=== PATIENT | male | born 1945 | race Hispanic/Latino ===

== ENCOUNTER 2017-12-11 15:39 | Observation (INO) | payer OTHER ==
[2017-12-11] MEDS ORDERED: ASPIRIN 81 MG CHEWABLE TABLET ONE (16:28)
[2017-12-11] MEDS ORDERED: NA CHLORIDE 0.9% 1,000 ML ONE (16:29)
--- NOTE | 2017-12-11 16:29 | RAD REPORT ---
EXAM DESCRIPTION: RAD - Chest Single View - 12/11/2017 4:22 pm CLINICAL HISTORY: Chest pain. COMPARISON: 04/17/2013 FINDINGS: Portable technique limits examination quality. The lungs are mildly emphysematous but grossly clear. The heart is normal in size. No displaced fract ures. IMPRESSION: No acute intrathoracic process suspected.
[2017-12-11 16:38] LABS: Absolute Lymphocytes (CBC) 2.5 K/uL (0.7-4.9); Absolute Monocytes 0.7 K/uL (0.1-1.3); Basophils % 0.7 % (0-1.3); Eosinophils % 2.9 % (0-4.4); Hematocrit 37.3 % (39.6-49.0); MCH 29.5 pg (27.0-35.0); MCV 87.1 fL (80-100); MPV 8.1 fL (7.6-11.3); Monocytes % 9.7 % (3.3-12.3); RBC Red Blood Cell Count 4.28 M/uL (4.33-5.43)
[2017-12-11 16:49] LABS: Protime INR 0.95
[2017-12-11 17:18] LABS: CKMB Creatine Kinase MB 1.3 ng/ml (0.3-4.0); Potassium 3.9 mEq/L (3.6-5.0)
[2017-12-11 17:24] LABS: Albumin 3.7 g/dL (3.2-5.5); Bilirubin Direct 0.1 mg/dL (0-0.2); Bilirubin Total 0.5 mg/dL (0.3-1.2); Magnesium 1.9 mg/dL (1.8-2.5); Protein, Total 7.1 g/dL (6.0-8.3)
--- NOTE | 2017-12-11 18:13 | EDPHYS ---
Physician Documentation [facility] Name: Ulisses Agrawal Age: 72 yrs Sex: Male : 1945 Arrival Date: 12/11/2017 Time: 15:43 Bed 4 Private MD: None, None ED Physician Leif Gannon HPI: 12/11 16:20 This 72 yrs old Male presents to ER via Ambulatory with complaints of Chest cp Pressure. 16:21 The patient or guardian reports chest pain that is located primarily in the anterior cp chest wall, left. Onset: yesterday. The pain does not radiate. Associated signs and symptoms: Pertinent negatives: abdominal pain, cough, diaphoresis, dizziness, headache, lower extremity pain, lower extremity swelling, lightheadedness, near syncope, shortness of breath, syncope, vomiting. The chest pain is described as a pressure. Duration: The patient or guardian reports a single episode, that is still ongoing, but improving. Severity of pain: in the emergency department the pain is a / 10. 16:21 Pain started yesterday while helping son move heavy boxes. cp Historical: - Allergies: 15:49 No Known Allergies; aj - Home Meds: 15:49 Metformin Oral [Active]; aj - PMHx: 15:49 Myocardial infarction; Diabetes - NIDDM; aj - PSHx: 15:49 None; aj - Immunization history:: Adult Immunizations up to date. - Social history:: Smoking status: Patient uses tobacco products, smokes one-half pack cigarettes per day. - Ebola Screening: : Patient negative for fever greater than or equal to 101.5 degrees Fahrenheit, and additional compatible Ebola Virus Disease symptoms Patient denies exposure to infectious person Patient denies travel to an Ebola-affected area in the 21 days before illness onset No symptoms or risks identified at this time. ROS: 16:22 Eyes: Negative for injury, pain, redness, and discharge. cp 16:22 Constitutional: Negative for body aches, chills, fever, poor PO intake. 16:22 ENT: Negative for drainage from ear(s), ear pain, sore throat, difficulty swallowing, difficulty handling secretions. 16:22 Cardiovascular: Positive for chest pain, Negative for edema, orthopnea, palpitations. 16:22 Respiratory: Negative for cough, pleurisy, shortness of breath, wheezing. 16:22 Abdomen/GI: Negative for abdominal pain, nausea, vomiting, and diarrhea, black/tarry stool, rectal bleeding. 16:22 Back: Negative for pain at rest, pain with movement, radiated pain. 16:22 : Negative for urinary symptoms. 16:22 Skin: Negative for cellulitis, rash. 16:22 Neuro: Negative for altered mental status, dizziness, headache, loss of consciousness, syncope, near syncope, weakness. 16:22 All other systems are negative. Exam: 16:08 ECG was reviewed by the Attending Physician. cp 16:25 Constitutional: The patient appears in no acute distress, alert, awake, cp non-diaphoretic, non-toxic, well developed, well nourished. 16:25 Head/Face: Normocephalic, atraumatic. Eyes: Pupils equal round and reactive to light, cp extra-ocular motions intact. Lids and lashes normal. Conjunctiva and sclera are non-icteric and not injected. Cornea within normal limits. Periorbital areas with no swelling, redness, or edema. ENT: Nares patent. No nasal discharge, no septal abnormalities noted. Tympanic membranes are normal and external auditory canals are clear. Oropharynx with no redness, swelling, or masses, exudates, or evidence of obstruction, uvula midline. Mucous membranes moist. Neck: Trachea midline, no thyromegaly or masses palpated, and no cervical lymphadenopathy. Supple, full range of motion without nuchal rigidity, or vertebral point tenderness. No Meningismus. 16:25 Chest/axilla: Inspection: normal, Palpation: crepitus, is not appreciated, tenderness, that is mild, of the anterior aspect of left upper chest and mid-sternal area, Lymph nodes: lymphadenopathy is not appreciated. 16:25 Cardiovascular: Rate: normal, Rhythm: regular, Pulses: Pulses are 2+ in right radial artery and left radial artery. Heart sounds: murmur, not appreciated, Edema: is not appreciated, JVD: is not appreciated. 16:25 Respiratory: the patient does not display signs of respiratory distress, Respirations: normal, no use of accessory muscles, no retractions, no splinting, no tachypnea, labored breathing, is not present, Breath sounds: are clear throughout, no decreased breath sounds, no stridor, no wheezing. 16:25 Abdomen/GI: Inspection: abdomen appears normal, Bowel sounds: active, all quadrants, Palpation: abdomen is soft and non-tender, in all quadrants, rebound tenderness, is not appreciated, voluntary guarding, is not appreciated, involuntary guarding, is not appreciated. 16:25 Back: pain, is absent, ROM is normal. 16:25 Musculoskeletal/extremity: Exam is negative for bony tenderness, calf tenderness, decreased range of motion, edema, ROM: intact in all extremities, Sensation intact. 16:25 Skin: cellulitis, is not appreciated, no rash present. 16:25 Neuro: Orientation: to person, place \T\ time. Mentation: lucid, able to follow commands, Cerebellar function: is grossly normal, Motor: moves all fours, strength is normal, Sensation: no obvious gross deficits. Vital Signs: 15:49 BP 133 / 72; Pulse 89; Resp 17; Temp 98.7; Pulse Ox 100% on R/A; Weight 79.38 kg; aj Height 5 ft. 7 in. (170.18 cm); 16:30 BP 105 / 62 LA Supine; Pulse 75; Resp 16; Pulse Ox 98% on R/A; dh3 16:30 BP 131 / 62 RA Supine; Pulse 73; Resp 16; Pulse Ox 98% on R/A; dh3 16:33 BP 106 / 64 LA Sitting; Pulse 82; Resp 23; Pulse Ox 100% on R/A; dh3 16:33 BP 127 / 63 RA Sitting; Pulse 82; Resp 21; Pulse Ox 100% on R/A; dh3 16:36 BP 110 / 63 LA Standing; Pulse 79; Resp 23; Pulse Ox 99% on R/A; dh3 16:36 BP 128 / 66 RA Standing; Pulse 77; Resp 21; Pulse Ox 100% ; dh3 17:38 BP 129 / 65; Pulse 88; Resp 18; Pulse Ox 100% on R/A; hj 18:06 BP 125 / 71; Pulse 66; Resp 18; Pulse Ox 100% on R/A; dh3 19:15 BP 108 / 55; Pulse 72; Resp 16; Pulse Ox 99% on R/A; Pain 0/10; ao 15:49 Body Mass Index 27.41 (79.38 kg, 170.18 cm) aj MDM: 16:12 Patient medically screened. cp 17:00 Differential diagnosis: abnormal EKG, acute myocardial infarction, acute pericarditis, cp gastroesophageal reflux disease (GERD), myocarditis, pancreatitis, pleurisy, pneumonia, pneumothorax, pulmonary embolus, stable angina, thoracic aortic disection, unstable angina. 18:10 The patient was given aspirin in the Emergency Department. Data reviewed: vital signs, cp nurses notes, lab test result(s), EKG, radiologic studies, plain films. Physician consultation: Erwin Keenan MD was called at 18:11, was contacted at 18:11, regarding admission, to the telemetry unit. patient's condition. 12/11 16:13 Order name: Basic Metabolic Panel; Complete Time: 17:47 cp 12/11 17:48 Interpretation: Normal except: GLUC 170; GFR 71. cp 12/11 16:13 Order name: BNP; Complete Time: 17:04 cp 12/11 16:13 Order name: CBC with Diff; Complete Time: 17:04 cp 12/11 17:04 Interpretation: Normal except: RBC 4.28; HGB 12.6; HCT 37.3. cp 12/11 16:13 Order name: Ckmb; Complete Time: 17:47 cp 12/11 16:13 Order name: CPK; Complete Time: 17:47 cp 12/11 16:13 Order name: LFT's; Complete Time: 17:47 cp 12/11 17:48 Interpretation: Normal except: SGPT 8. cp 12/11 16:13 Order name: Magnesium; Complete Time: 17:47 cp 12/11 16:13 Order name: PT-INR; Complete Time: 17:47 cp 12/11 16:13 Order name: Ptt, Activated; Complete Time: 17:47 cp 12/11 16:13 Order name: Troponin (emerg Dept Use Only); Complete Time: 17:04 cp 12/11 17:04 Interpretation: TROPED < 0.03; Reviewed. cp 12/11 18:21 Order name: Basic Metabolic Panel EDMS 12/11 18:21 Order name: Basic Metabolic Panel EDMS 12/11 18:21 Order name: CBC with Automated Diff EDMS 12/11 18:21 Order name: CBC with Automated Diff EDMS 12/11 16:13 Order name: XRAY Chest (1 view); Complete Time: 17:04 cp 12/11 16:13 Order name: EKG; Complete Time: 16:14 cp 12/11 16:13 Order name: Cardiac monitoring; Complete Time: 16:23 cp 12/11 18:21 Order name: CONS Physician Consult EDPR 12/11 18:21 Order name: Heart Healthy EDPR 12/11 18:21 Order name: Echo with Doppler EDPR 12/11 18:21 Order name: Lipid Profile EDPR 12/11 18:21 Order name: Lipid Profile [facility] 12/11 18:21 Order name: Troponin I EDPR 12/11 18:21 Order name: Troponin I [facility] 12/11 18:21 Order name: Troponin I [facility] 12/11 16:13 Order name: EKG - Nurse/Tech; Complete Time: 16:23 cp 12/11 16:13 Order name: IV Saline Lock; Complete Time: 16:23 cp 12/11 16:13 Order name: Labs collected and sent; Complete Time: 16:24 cp 12/11 16:13 Order name: O2 Per Protocol; Complete Time: 16:24 cp 12/11 16:13 Order name: O2 Sat Monitoring; Complete Time: 16:24 cp 12/11 16:15 Order name: Blood Pressure Recheck: bilateral upper extremities; Complete Time: 16:46 cp 12/11 16:15 Order name: Orthostatics; Complete Time: 16:46 cp EC:08 Rate is 88 beats/min. Rhythm is regular. TX interval is normal. QRS interval is normal. cp QT interval is normal. T waves are Flattened in lead aVL. No ST changes noted. Interpreted by me. Reviewed by me. Administered Medications: 16:15 Drug: Aspirin Chewable Tablet 324 mg Route: PO; hj 16:54 Follow up: Response: No adverse reaction hj 16:15 Drug: NS 0.9% 1000 ml Route: IV; Rate: 75 ml/hr; Site: right antecubital; hj 16:54 Follow up: IV Status: Infusion continued hj 17:05 Drug: NS 0.9% 250 ml Route: IV; Rate: bolus; Site: right antecubital; hj 19:15 Drug: Metoprolol 25 mg Route: PO; ao 19:15 Drug: Lovenox 40 mg Route: Sub-Q; Site: abdomen; ao Disposition: 12/11/17 18:13 Hospitalization ordered by Erwin Keenan for Observation. Preliminary diagnosis is Angina pectoris, unspecified. - Bed requested for Telemetry/MedSurg (observation). - Status is Observation. ao - Condition is Stable. - Problem is new. - Symptoms are resolved. UTI on Admission? No Addendum: 12/13/2017 07:01 Co-signature as Attending Physician, Leif Gannon MD I agree with the assessment and k dr plan of care. Signatures: Dispatcher [employer] EDMS Penny Ware RN RN kl Myers, Amanda, RN RN aj Rittger, Kevin, MD MD kdr Joaquin, Henry RN RN Arnie Youssef PA PA cp Ortiz, Alex RN RN ao Corrections: (The following items were deleted from the chart) 12/11 19:20 18:13 Hospitalization Ordered by Erwin Keenan MD for Observation. Preliminary diagnosis kl is Angina pectoris, unspecified. Bed requested for Telemetry/MedSurg (observation). Status is Observation. Condition is Stable. Problem is new. Symptoms are resolved. UTI on Admission? No. cp 20:27 19:20 12/11/2017 18:13 Hospitalization Ordered by Erwin Keenan MD for Observation. ao Preliminary diagnosis is Angina pectoris, unspecified. Bed requested for Telemetry/MedSurg (observation). Status is Observation. Condition is Stable. Problem is new. Symptoms are resolved. UTI on Admission? No. kl
--- NOTE | 2017-12-11 18:13 | ER ---
Nurse's Notes [facility] Name: Ulisses Agrawal Age: 72 yrs Sex: Male : 1945 Arrival Date: 12/11/2017 Time: 15:43 Bed 4 Private MD: None, None Diagnosis: Angina pectoris, unspecified Presentation: 12/11 15:48 Presenting complaint: Patient states: Chest pressure that started yesterday with aj lightheadedness. Patient reports that he forgot where he was. Transition of care: patient was not received from another setting of care. Onset of symptoms was December 10, 2017. Risk Assessment: Do you want to hurt yourself or someone else? Patient reports no desire to harm self or others. Care prior to arrival: None. 15:48 Method Of Arrival: Ambulatory 15:48 Acuity: RAMIREZ 3 aj 16:02 Initial Sepsis Screen: Does the patient meet any 2 criteria? No. Patient's initial hj sepsis screen is negative. Does the patient have a suspected source of infection? No. Patient's initial sepsis screen is negative. Triage Assessment: 15:49 General: Appears in no apparent distress. comfortable, Behavior is calm, cooperative, aj appropriate for age. Pain: Denies pain. Neuro: Level of Consciousness is awake, alert, obeys commands, Oriented to person, place, time, situation, Appropriate for age. Cardiovascular: Reports chest pain, lightheadedness, shortness of breath. Respiratory: Reports shortness of breath Airway is patent Respiratory effort is even, unlabored, Respiratory pattern is regular, symmetrical. Derm: Skin is intact, is healthy with good turgor, Skin is pink, warm \T\ dry. normal. Historical: - Allergies: 15:49 No Known Allergies; aj - Home Meds: 15:49 Metformin Oral [Active]; aj - PMHx: 15:49 Myocardial infarction; Diabetes - NIDDM; aj - PSHx: 15:49 None; aj - Immunization history:: Adult Immunizations up to date. - Social history:: Smoking status: Patient uses tobacco products, smokes one-half pack cigarettes per day. - Ebola Screening: : Patient negative for fever greater than or equal to 101.5 degrees Fahrenheit, and additional compatible Ebola Virus Disease symptoms Patient denies exposure to infectious person Patient denies travel to an Ebola-affected area in the 21 days before illness onset No symptoms or risks identified at this time. Screenin:02 Abuse screen: Denies threats or abuse. Denies injuries from another. Nutritional hj screening: No deficits noted. Tuberculosis screening: No symptoms or risk factors identified. Fall Risk None identified. Assessment: 16:02 General: Appears in no apparent distress. uncomfortable, Behavior is calm, cooperative, hj appropriate for age. Pain: Complains of pain in chest. Neuro: Level of Consciousness is awake, alert, obeys commands, Oriented to person, place, time, situation, Appropriate for age. Cardiovascular: Capillary refill < 3 seconds Patient's skin is warm and dry. Respiratory: Airway is patent Respiratory effort is even, unlabored, Respiratory pattern is regular, symmetrical. GI: No signs and/or symptoms were reported involving the gastrointestinal system. : No signs and/or symptoms were reported regarding the genitourinary system. EENT: No signs and/or symptoms were reported regarding the EENT system. Derm: No signs and/or symptoms reported regarding the dermatologic system. Musculoskeletal: No signs and/or symptoms reported regarding the musculoskeletal system. 17:37 Reassessment: Patient and/or family updated on plan of care and expected duration. Pain hj level reassessed. Patient is alert, oriented x 3, equal unlabored respirations, skin warm/dry/pink. Patient states feeling better. Patient states symptoms have improved. 18:30 Reassessment: Patient and/or family updated on plan of care and expected duration. Pain hj level reassessed. Patient is alert, oriented x 3, equal unlabored respirations, skin warm/dry/pink. for admit;. 19:15 General: Appears in no apparent distress. comfortable, Behavior is calm, cooperative, ao appropriate for age. Pain: Denies pain. Complains of pain in Report chest pain that has subside. No CO of pain at this time. Neuro: Level of Consciousness is awake, alert, obeys commands, Oriented to person, place, time, situation, Appropriate for age Moves all extremities. Speech is normal, Facial symmetry appears normal. Cardiovascular: Capillary refill < 3 seconds Patient's skin is warm and dry. Respiratory: Airway is patent Respiratory effort is even, unlabored, Respiratory pattern is regular, symmetrical. GI: No signs and/or symptoms were reported involving the gastrointestinal system. : No signs and/or symptoms were reported regarding the genitourinary system. EENT: No signs and/or symptoms were reported regarding the EENT system. Derm: Skin is intact, Skin is normal, brown, Skin temperature is warm. Musculoskeletal: No signs and/or symptoms reported regarding the musculoskeletal system. 20:02 Reassessment: Report called to CODEY Barrera. Patient to be taking to his room. ao Vital Signs: 15:49 BP 133 / 72; Pulse 89; Resp 17; Temp 98.7; Pulse Ox 100% on R/A; Weight 79.38 kg; aj Height 5 ft. 7 in. (170.18 cm); 16:30 BP 105 / 62 LA Supine; Pulse 75; Resp 16; Pulse Ox 98% on R/A; dh3 16:30 BP 131 / 62 RA Supine; Pulse 73; Resp 16; Pulse Ox 98% on R/A; dh3 16:33 BP 106 / 64 LA Sitting; Pulse 82; Resp 23; Pulse Ox 100% on R/A; dh3 16:33 BP 127 / 63 RA Sitting; Pulse 82; Resp 21; Pulse Ox 100% on R/A; dh3 16:36 BP 110 / 63 LA Standing; Pulse 79; Resp 23; Pulse Ox 99% on R/A; dh3 16:36 BP 128 / 66 RA Standing; Pulse 77; Resp 21; Pulse Ox 100% ; dh3 17:38 BP 129 / 65; Pulse 88; Resp 18; Pulse Ox 100% on R/A; hj 18:06 BP 125 / 71; Pulse 66; Resp 18; Pulse Ox 100% on R/A; dh3 19:15 BP 108 / 55; Pulse 72; Resp 16; Pulse Ox 99% on R/A; Pain 0/10; ao 15:49 Body Mass Index 27.41 (79.38 kg, 170.18 cm) aj ED Course: 15:43 Patient arrived in ED. mr 15:43 None, None is Private Physician. mr 15:49 Triage completed. aj 15:49 Arm band placed on left wrist. Patient placed in an exam room. aj 16:01 Oz Dickens RN is Primary Nurse. hj 16:02 Patient has correct armband on for positive identification. Placed in gown. Bed in low hj position. Call light in reach. Side rails up X 1. 16:06 EKG done, by audiovisual technician. reviewed by Leif Gannon MD. sm3 16:07 Arnie Fuentes PA is PHCP. cp 16:07 Leif Gannon MD is Attending Physician. cp 16:08 Inserted saline lock: 22 gauge in right antecubital area, using aseptic technique. Blood collected. 16:20 XRAY Chest (1 view) In Process Unspecified. EDMS 18:11 Erwin Keenan MD is Hospitalizing Provider. cp 20:03 No provider procedures requiring assistance completed. Patient admitted, IV remains in ao place. Administered Medications: 16:15 Drug: Aspirin Chewable Tablet 324 mg Route: PO; hj 16:54 Follow up: Response: No adverse reaction hj 16:15 Drug: NS 0.9% 1000 ml Route: IV; Rate: 75 ml/hr; Site: right antecubital; hj 16:54 Follow up: IV Status: Infusion continued hj 17:05 Drug: NS 0.9% 250 ml Route: IV; Rate: bolus; Site: right antecubital; hj 19:15 Drug: Metoprolol 25 mg Route: PO; ao 19:15 Drug: Lovenox 40 mg Route: Sub-Q; Site: abdomen; ao Outcome: 18:13 Decision to Hospitalize by Provider. cp 20:03 Admitted to Tele accompanied by tech, room 424. ao 20:03 Condition: stable 20:03 Instructed on the need for admit. 20:27 Patient left the ED. ao Signatures: Dispatcher [employer] EDIL eBa Amaro RN RN aj Rivera, Maria mr Joaquin, Henry, RN RN hj Page, Corey, PA PA Royal Schwarz RN RN ao Herrera, Deanna 3 Priya Felder 3
[2017-12-11] MEDS ORDERED: ACETAMINOPHEN 500 MG TAB PO PRN (18:17)
[2017-12-11] MEDS ORDERED: MORPHINE 4 MG/ML SYR IV PRN (18:17)
[2017-12-11] MEDS ORDERED: D50W 25 GM/50 ML SYRINGE IV PRN (18:24)
[2017-12-11] MEDS ORDERED: GLUCAGON 1 MG/VIAL IM PRN (18:24)
[2017-12-11] MEDS ORDERED: NITROGLYCERIN 0.4 MG/TAB SL PRN (18:27)
[2017-12-11] MEDS ORDERED: METOPROLOL TAR 25 MG TAB ONE (19:12)
[2017-12-11] MEDS ORDERED: ENOXAPARIN 40 MG/0.4 ML SQ ONE (19:12)
[2017-12-11] MEDS: ENOXAPARIN 40 MG/0.4 ML SQ SCH (20:00)
[2017-12-11 20:36] VITALS: BMI 24.5
[2017-12-11] MEDS: INSULIN -REGULAR HUMAN 50 UNIT/0.5 ML ML SQ SCH (21:00)
[2017-12-11] MEDS: METOPROLOL TAR 25 MG TAB PO SCH (21:00)
[2017-12-11] MEDS ORDERED: ATORVASTATIN 40 MG TAB PO SCH (21:00)
[2017-12-11] MEDS: NA CHLORIDE 0.9% 1,000 ML IV SCH (22:00)
--- NOTE | 2017-12-11 22:18 | P.HP ---
Certification for Inpatient Patient admitted to: Observation With expected LOS: <2 Midnights Practitioner: I am a practitioner with admitting privileges, knowledge of patient current condition, hospital course, and medical plan of care. 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 This morning he felt chest discomfort. He also states that he feels dehydrated since he has been working under the sun and did not drink enough fluids. He describe the chest pain as tightness sensation, no radiated. He denied nausea, vomiting, SOB or diaphoresis associated with the pain. Trop I negative. EKG shows no ST-T abnormalities. Lab work remarkable for mild hyperglycemia, otherwise unremarkable. Allergies No Known Allergies Allergy (Unverified 12/11/17 19:03) - Past Medical/Surgical History -: DM II -: HI Past Surgical History: Reviewed- Non-Contributory - Family History Family History: Reviewed- Non-Contributory - Social History Smoking Status: Current every day smoker Counseled patient to stop smoking for: less than 10 minutes Smoking therapy provided: Yes Alcohol use: Yes CD- Drugs: No Place of Residence: Home Review of Systems 10-point ROS is otherwise unremarkable Physical Examination - Vital Signs Temperature: 97.5 F Blood Pressure: 169/74 Pulse: 62 Respirations: 17 Pulse Ox (%): 100 - Physical Exam General: Alert, In no apparent distress HEENT: Atraumatic, PERRLA, Mucous membr. moist/pink, EOMI, Sclerae nonicteric Neck: Supple, 2+ carotid pulse no bruit, No LAD, Without JVD or thyroid abnormality Respiratory: Clear to auscultation bilaterally, Normal air movement Cardiovascular: Regular rate/rhythm, Normal S1 S2 Gastrointestinal: Normal bowel sounds, No tenderness Musculoskeletal: No tenderness Integumentary: No rashes Neurological: Normal speech, Normal strength at 5/5 x4 extr, Normal tone, Normal affect Lymphatics: No axilla or inguinal lymphadenopathy - Studies Laboratory Data (last 24 hrs) 12/11/17 16:15: PT 11.2, INR 0.95, APTT 27.3 12/11/17 16:15: WBC 7.5, Hgb 12.6 L, Hct 37.3 L, Plt Count 211 12/11/17 16:15: B-Natriuretic Peptide 26 12/11/17 16:15: Sodium 136, Potassium 3.9, BUN 17, Creatinine 1.03, Glucose 170 H, Magnesium 1.9, Total Bilirubin 0.5, AST 14, ALT 8 L, Alkaline Phosphatase 81 Assessment and Plan - Problems (Diagnosis) (1) Chest pain Current Visit: Yes Status: Acute Qualifiers: Chest pain type: unspecified Qualified Code(s): R07.9 - Chest pain, unspecified (2) Diabetes mellitus Current Visit: Yes Status: Acute Qualifiers: Diabetes mellitus type: type 2 Diabetes mellitus terminal superintendent insulin use: without terminal superintendent use Diabetes mellitus complication status: with unspecified complications Qualified Code(s): E11.8 - Type 2 diabetes mellitus with unspecified complications - Plan The patient will be admitted to the hospital due to chest pain in order to R/O ACS. Will order serial Trop I, EKG, ECHO and cardiology consult. - Advance Directives Does patient have a Living Will: No Does patient have a Durable POA for Healthcare: No - Code Status/Comfort Care Code Status Assessed: Yes Code Status: Full Code
--- NOTE | 2017-12-11 23:01 | EKG ---
Test Date: 2017-12-11 Test Time: 16:00:37 Launch Leader: LUIS MEASUREMENT RESULTS: Intervals: Rate: 88 MD: 144 QRSD: 90 QT: 376 QTc: 454 [place]: P: 43 MD: 144 QRS: -38 T: 60 INTERPRETIVE STATEMENTS: Normal sinus rhythm Left axis deviation Abnormal ECG Compared to ECG 05/11/2013 14:29:38 No significant changes Electronically Signed On 12-11-17 23:00:04 CDT by Robin Avendaño
[2017-12-12] MEDS: NA CHLORIDE 0.9% 1,000 ML IV SCH (05:44)
[2017-12-12 06:28] LABS: Absolute Lymphocytes (CBC) 2.1 K/uL (0.7-4.9); Absolute Monocytes 0.5 K/uL (0.1-1.3); Absolute Neutrophil 3.5 K/uL (1.8-8.0); Basophils % 0.6 % (0-1.3); Eosinophils % 3.5 % (0-4.4); Hematocrit 32.8 % (39.6-49.0); Lymphocytes % 32.6 % (15.3-44.8); MCV 86.2 fL (80-100); MPV 8.1 fL (7.6-11.3); Monocytes % 8.1 % (3.3-12.3); RBC Red Blood Cell Count 3.81 M/uL (4.33-5.43)
[2017-12-12 07:15] LABS: BUN Blood Urea Nitrogen 16 mg/dL (6-20); Bicarbonate 26 mEq/L (21-31); Glucose Level 154 mg/dL (65-120); HDL Cholesterol 39 mg/dL (27-67); LDL Cholesterol, Calculated 76 (<130); Potassium 3.9 mEq/L (3.6-5.0); Sodium Level 137 mEq/L (135-145)
[2017-12-12] MEDS: INSULIN -REGULAR HUMAN 50 UNIT/0.5 ML ML SQ SCH (07:30)
[2017-12-12] MEDS ORDERED: REGADENOSON 0.4 MG/5 ML SYR IV ONE (07:44)
[2017-12-12 08:44] VITALS: BP 116/59; TEMP 97.7
[2017-12-12] MEDS: METOPROLOL TAR 25 MG TAB PO SCH (09:00)
[2017-12-12] MEDS: ENOXAPARIN 40 MG/0.4 ML SQ SCH (09:00)
[2017-12-12] MEDS ORDERED: ASPIRIN EC 81 MG TAB PO SCH (09:00)
[2017-12-12] MEDS ORDERED: LISINOPRIL 10 MG TAB PO SCH (09:00)
[2017-12-12 09:27] VITALS: O2SAT 96
--- NOTE | 2017-12-12 09:41 | P.DS ---
Admission Date: 12/11/17 Discharge Date: 12/12/17 Disposition: ROUTINE DISCHARGE Discharge Condition: GOOD Reason for Admission: chest pain - Problems (1) Chest pain Current Visit: Yes Status: Acute Qualifiers: Chest pain type: unspecified Qualified Code(s): R07.9 - Chest pain, unspecified (2) Diabetes mellitus Current Visit: Yes Status: Acute Qualifiers: Diabetes mellitus type: type 2 Diabetes mellitus tank terminal gauger insulin use: without tank terminal gauger use Diabetes mellitus complication status: with unspecified complications Qualified Code(s): E11.8 - Type 2 diabetes mellitus with unspecified complications Brief History of Present Illness: Patient was working in the yard. Lifted a timber killer into a truck the next morning he felt dizzy with some pain and soreness in his chest. Came to the ER. Was found to have a normal EKG and troponins. The patient was placed in observation Hospital Course: Seen by Dr Bailey. He had 3 negative troponins and a normal ekg. Will discharge him home for an outpatient work up. Vital Signs/Physical Exam: Temp Pulse Resp BP Pulse Ox 97.7 F 54 18 116/59 L 97 12/12/17 08:00 12/12/17 08:00 12/12/17 08:00 12/12/17 08:00 12/12/17 08:00 General: Alert, In no apparent distress HEENT: Atraumatic, PERRLA, EOMI Neck: Supple, JVD not distended Respiratory: Clear to auscultation bilaterally, Normal air movement Cardiovascular: Regular rate/rhythm, Normal S1 S2 Gastrointestinal: Normal bowel sounds, No tenderness Musculoskeletal: No tenderness Integumentary: No rashes Neurological: Normal speech, Normal tone, Normal affect Lymphatics: No axilla or inguinal lymphadenopathy Laboratory Data at Discharge: WBC 6.3 K/uL (4.3-10.9) D 12/12/17 05:45 Hgb 11.4 g/dL (13.6-17.9) L 12/12/17 05:45 Hct 32.8 % (39.6-49.0) L 12/12/17 05:45 Plt Count 197 K/uL (152-406) 12/12/17 05:45 PT 11.2 SECONDS (9.5-12.5) 12/11/17 16:15 INR 0.95 12/11/17 16:15 APTT 27.3 SECONDS (24.3-36.9) 12/11/17 16:15 Sodium 137 mEq/L (135-145) 12/12/17 05:45 Potassium 3.9 mEq/L (3.6-5.0) 12/12/17 05:45 BUN 16 mg/dL (6-20) 12/12/17 05:45 Creatinine 0.77 mg/dL (0.61-1.24) 12/12/17 05:45 Glucose 154 mg/dL (65-120) H 12/12/17 05:45 Magnesium 1.9 mg/dL (1.8-2.5) 12/11/17 16:15 Total Bilirubin 0.5 mg/dL (0.3-1.2) 12/11/17 16:15 AST 14 IU/L (10-42) 12/11/17 16:15 ALT 8 IU/L (10-60) L 12/11/17 16:15 Alkaline Phosphatase 81 IU/L (42-121) 12/11/17 16:15 Troponin I < 0.03 ng/mL (<0.03) 12/12/17 05:45 B-Natriuretic Peptide 26 pg/ml (<=100) 12/11/17 16:15 Triglycerides 104 mg/dL (35-160) 12/12/17 05:45 Cholesterol 136 mg/dL (<200) 12/12/17 05:45 HDL Cholesterol 39 mg/dL (27-67) 12/12/17 05:45 Cholesterol/HDL Ratio 3.49 12/12/17 05:45 Home Medications: Metformin HCl 500 mg PO DAILY 12/11/17 Diet: ADA Activity: Ad xiomara Followup: Rigoberto Bailey MD [ACTIVE - CAN ADMIT] - 1-2 Weeks Allison Butts NP [Primary Care Provider] - 1-2 Weeks Time spent managing pt's care (in minutes): 30
--- NOTE | 2017-12-12 13:40 | CON ---
Date of Consultation: 12/12/[address] Keenan on 12/11/2017. The patient was seen on 12/12/2017. Reason For Consultation: Chest pain. History Of Present Illness: Mr. Agrawal is a 72-year-old male, who apparently had hist ory of coronary artery disease when he was in his 20s. No interventions or bypass. Has a history of diabetes. He only takes metformin. He came into the emergency room where he stayed with wandaatio n. He was very upset when I asked that if he has any chest pain. He had some ultrasound and stress test ordered and he refused any workup. He wanted to go home. He stated that he feels well. He is hydrated. He said that he normally goes to [place] when he is dehydrated, gets IV fluid and goes ho pr, and he does not want to be in the hospital. Allergies: NONE. Medications: Metformin. Review of Systems: Negative. Social History: Negative. Family History: Noncontributory. Physical Examination: Reportedly within normal limit. Diagnostic Data: Within normal limits. Impression And Plan: 1.Dehydration, possible orthostasis, hydrated. 2.History of coronary artery disease that is very vague. 3.Diabetes, well controlled. Refuses workup. He can go home. I will sign off his case. NAHOMY/ANNIE Voice ID: [id number] Report ID: [id number]
== END 2017-12-12 11:01 | disposition home or self-care (01) ==
LOC: ER 15:39 → ERHOLD 18:46 → 4TH 19:23
PROVIDERS: ADMIT Family Medicine; ATTEND Internal Medicine
DX: R07.9 Chest pain, unspecified (principal); E11.9 Type 2 diabetes mellitus without complications; F17.210 Nicotine dependence, cigarettes, uncomplicated; I25.2 Old myocardial infarction
CPT/HCPCS: 36415; 71045; 80048 ×2; 80061; 80076; 82550; 82553; 82962 ×2; 83735; 83880; 84484 ×3; 85025 ×2; 85610; 85730; 93005; 94760 ×2; 96361; 96372; 96374; 99285; J1650; J7030 ×2; G0378; J2785

== ENCOUNTER 2019-06-04 15:57 | Emergency (ER) | payer OTHER ==
[2019-06-04 17:21] LABS: Absolute Lymphocytes (CBC) 2.1 K/uL (0.7-4.9); Basophils % 0.8 % (0-1.3); Hematocrit 38.1 % (39.6-49.0); Lymphocytes % 32.9 % (15.3-44.8); MPV 8.4 fL (7.6-11.3); RBC Red Blood Cell Count 4.45 M/uL (4.33-5.43)
[2019-06-04] MEDS ORDERED: NA CHLORIDE 0.9% 500 ML ONE (17:30)
--- NOTE | 2019-06-04 17:38 | RAD REPORT ---
EXAM DESCRIPTION: CT - Head Brain Wo Cont - 06/04/2019 5:16 pm CLINICAL HISTORY: Dizziness COMPARISON: None. TECHNIQUE: Computed axial tomography of the head was obtained. IV contrast was not requested. All CT scans are performed using dose optimization technique as appropriate and may include automated exposure control or mA/KV adjustment according to patient size. FINDINGS: An intracranial bleed is not seen . The ventricles are normal in caliber. No extra-axial fluid collection is noted. Fluid within the sinuses/ mastoids is not seen. IMPRESSION: No acute intracranial abnormality is seen. If patient's symptoms persist MRI of the bra in would be recommended.
[2019-06-04 17:39] LABS: BUN Blood Urea Nitrogen 19 mg/dL (7-18); Bicarbonate 29 mmol/L (21-32); Glucose Level 221 mg/dL (74-106); Potassium 4.2 mmol/L (3.5-5.1); Sodium Level 136 mmol/L (136-145); Troponin (Emerg Dept Use Only) < 0.02 ng/mL (0.0-0.045)
--- NOTE | 2019-06-04 18:59 | ER ---
Nurse's Notes [facility] Name: Ulisses Agrawal Age: 73 yrs Sex: Male : 1945 Arrival Date: 06/04/2019 Time: 15:59 Bed 28 Private MD: Diagnosis: Dehydration;Dizziness and giddiness Presentation: 06/04 16:12 Presenting complaint: Patient states: I was out fishing about an hour ago and stood up jl7 and felt dizzy and my vision was a little blurry, symptoms have resolved, wasn't sure if my sugar was low or what, reports mild BRYAN, denies nausea. Transition of care: patient was not received from another setting of care. Onset of symptoms was June 04, 2019 at 15:00. Risk Assessment: Do you want to hurt yourself or someone else? Patient reports no desire to harm self or others. Initial Sepsis Screen: Does the patient meet any 2 criteria? No. Patient's initial sepsis screen is negative. Does the patient have a suspected source of infection? No. Patient's initial sepsis screen is negative. Care prior to arrival: None. 16:12 Method Of Arrival: Ambulatory [facility] 16:12 Acuity: RAMIREZ 3 jl7 Historical: - Allergies: 16:17 No Known Allergies; jl7 - Home Meds: 16:17 Metformin Oral [Active]; "2 other pills for high blood pressure, I think." [Active]; jl7 - PMHx: 16:17 Diabetes - NIDDM; Myocardial infarction; Hypertension; jl7 - Immunization history:: Adult Immunizations not up to date. - Social history:: Smoking status: Patient uses tobacco products, smokes one-half pack cigarettes per day. - Ebola Screening: : No symptoms or risks identified at this time. - Family history:: not pertinent. - Hospitalizations: : No recent hospitalization is reported. Screenin:27 Abuse screen: Denies threats or abuse. Denies injuries from another. Nutritional aj1 screening: No deficits noted. Tuberculosis screening: No symptoms or risk factors identified. Fall Risk None identified. Assessment: 16:27 General: Appears in no apparent distress. comfortable, Behavior is calm, cooperative, aj1 appropriate for age. Pain: Denies pain. Neuro: Level of Consciousness is awake, alert, obeys commands, Oriented to person, place, time, situation, Shot Core Drill Operator Helper are equal bilaterally Moves all extremities. Full function Gait is steady, Speech is normal, Facial symmetry appears normal, Reports blurred vision dizziness, headache Denies syncope weakness. Cardiovascular: Denies chest pain, nausea, palpitations, shortness of breath, Heart tones S1 S2 S4 Patient's skin is warm and dry. Rhythm is sinus rhythm. Respiratory: Airway is patent Respiratory effort is even, unlabored, Respiratory pattern is regular, symmetrical, Breath sounds are clear bilaterally. GI: No signs and/or symptoms were reported involving the gastrointestinal system. : No signs and/or symptoms were reported regarding the genitourinary system. EENT: No signs and/or symptoms were reported regarding the EENT system. Derm: No signs and/or symptoms reported regarding the dermatologic system. Skin is pink, warm \\T\\ dry. normal. Musculoskeletal: No signs and/or symptoms reported regarding the musculoskeletal system. Circulation, motion, and sensation intact. 17:30 Reassessment: Patient appears in no apparent distress at this time. No changes from aj1 previously documented assessment. Patient and/or family updated on plan of care and expected duration. Pain level reassessed. Patient is alert, oriented x 3, equal unlabored respirations, skin warm/dry/pink. 18:30 Reassessment: Patient appears in no apparent distress at this time. No changes from aj1 previously documented assessment. Patient and/or family updated on plan of care and expected duration. Pain level reassessed. Patient is alert, oriented x 3, equal unlabored respirations, skin warm/dry/pink. 19:28 Reassessment: Patient appears in no apparent distress at this time. No changes from aj1 previously documented assessment. Patient and/or family updated on plan of care and expected duration. Pain level reassessed. Patient is alert, oriented x 3, equal unlabored respirations, skin warm/dry/pink. Vital Signs: 16:17 BP 107 / 60; Pulse 74; Resp 16 S; Temp 98.7(O); Pulse Ox 100% on R/A; Weight 77.11 kg jl7 (R); Pain 07/10; 17:30 BP 165 / 82; Pulse 64; Resp 18; Pulse Ox 100% on R/A; aj1 18:30 BP 142 / 76; Pulse 65; Resp 18; Pulse Ox 100% on R/A; aj1 19:29 BP 156 / 75; Pulse 63; Resp 18; Pulse Ox 100% on R/A; aj1 ED Course: 15:59 Patient arrived in ED. as 16:16 Triage completed. jl7 16:17 Arm band placed on right wrist. Patient placed in an exam room, on a stretcher. jl7 16:21 Haleigh Curtis, RN is Primary Nurse. aj1 16:27 Patient has correct armband on for positive identification. Bed in low position. Call aj1 light in reach. 16:27 No provider procedures requiring assistance completed. aj1 16:47 Tushar Austin MD is Attending Physician. rn 17:16 CT Head Brain wo Cont In Process Unspecified. EDMS 17:16 Warm blanket given. Pillow given. Verbal reassurance given. campus monitor on. Pulse jp3 ox on. NIBP on. 17:16 Initial lab(s) drawn, by la, sent to lab. Inserted saline lock: 20 gauge in left jp3 forearm, using aseptic technique. Blood collected. Patient maintains SpO2 saturation greater than 95% on room air. 17:30 Urine collected: clean catch specimen, clear, jayda colored, EKG done, by ED staff, jp3 reviewed by Tushar Austin MD. 18:19 Urine Dipstick--Ancillary (enter results) Sent. aa5 19:29 IV discontinued, intact, bleeding controlled, No redness/swelling at site. Pressure aj1 dressing applied. Administered Medications: 17:30 Drug: NS 0.9% 500 ml Route: IV; Rate: bolus; Site: left antecubital; aj1 Outcome: 18:58 Discharge ordered by . rn 19:30 Discharged to home ambulatory. aj1 19:30 Condition: good 19:30 Discharge instructions given to patient, Instructed on discharge instructions, follow up and referral plans. Demonstrated understanding of instructions, follow-up care. 19:30 Patient left the ED. aj1 Signatures: Dispatcher [employer] EDMS Haleigh Curtis, RN RN aj1 Norma Do Roman, MD MD rn Calderon, Audri, CODEY RN aa5 Jono Shepherd RN RN jl7 Iftikhar Jane jp3
--- NOTE | 2019-06-04 19:00 | EDPHYS ---
Physician Documentation [facility] Name: Ulisses Agrawal Age: 73 yrs Sex: Male : 1945 Arrival Date: 06/04/2019 Time: 15:59 Bed 28 Private MD: ED Physician Tushar Austin HPI: 06/04 17:09 This 73 yrs old Male presents to ER via Ambulatory with complaints of rn Dizziness. 17:09 The patient presents with dizziness, generalized weakness, lightheadedness. Onset: The rn symptoms/episode began/occurred just prior to arrival. Modifying factors: The symptoms are alleviated by nothing, the symptoms are aggravated by standing up. Severity of symptoms: At their worst the symptoms were mild in the emergency department the symptoms have improved. The patient has not experienced similar symptoms in the past. Reports dizziness while fishing, had been out there for a few hours, didn't eat anything, no water, drank a soda. Stood up and got lightheaded, able to walk [place] bank of river, no focal neuro complaints, no chest pain/sob/abd pain/cough/fever/vomiting/diarrhea. Vision intact. And now back to baseline. . Historical: - Allergies: 16:17 No Known Allergies; jl7 - Home Meds: 16:17 Metformin Oral [Active]; "2 other pills for high blood pressure, I think." [Active]; jl7 - PMHx: 16:17 Diabetes - NIDDM; Myocardial infarction; Hypertension; jl7 - Immunization history:: Adult Immunizations not up to date. - Social history:: Smoking status: Patient uses tobacco products, smokes one-half pack cigarettes per day. - Ebola Screening: : No symptoms or risks identified at this time. - Family history:: not pertinent. - Hospitalizations: : No recent hospitalization is reported. ROS: 17:09 Constitutional: Negative for fever, chills, and weight loss, Eyes: Negative for injury, rn pain, redness, and discharge, Neck: Negative for injury, pain, and swelling, Cardiovascular: Negative for chest pain, palpitations, and edema, Respiratory: Negative for shortness of breath, cough, wheezing, and pleuritic chest pain, Abdomen/GI: Negative for abdominal pain, nausea, vomiting, diarrhea, and constipation, MS/Extremity: Negative for injury and deformity, Skin: Negative for injury, rash, and discoloration, Neuro: Negative for numbness, tingling, and seizure. Exam: 17:09 Constitutional: This is a well developed, well nourished patient who is awake, alert, rn and in no acute distress. Head/Face: Normocephalic, atraumatic. Eyes: Pupils equal round and reactive to light, extra-ocular motions intact. Lids and lashes normal. Conjunctiva and sclera are non-icteric and not injected. Cornea within normal limits. Periorbital areas with no swelling, redness, or edema. ENT: dry MM Neck: Trachea midline, no thyromegaly or masses palpated, and no cervical lymphadenopathy. Supple, full range of motion without nuchal rigidity, or vertebral point tenderness. No Meningismus. Cardiovascular: Regular rate and rhythm. No pulse deficits. Respiratory: No increased work of breathing, no retractions or nasal flaring. Abdomen/GI: soft, non-tender MS/ Extremity: Pulses equal, no cyanosis. Neurovascular intact. Full, normal range of motion. Equal circumference. Neuro: Awake and alert, GCS 15, oriented to person, place, time, and situation. Cranial nerves II-XII grossly intact. Motor strength 5/5 in all extremities. Sensory grossly intact. Cerebellar exam normal. 17:41 ECG was reviewed by the Attending Physician. rn Vital Signs: 16:17 BP 107 / 60; Pulse 74; Resp 16 S; Temp 98.7(O); Pulse Ox 100% on R/A; Weight 77.11 kg jl7 (R); Pain 1/10; 17:30 BP 165 / 82; Pulse 64; Resp 18; Pulse Ox 100% on R/A; aj1 18:30 BP 142 / 76; Pulse 65; Resp 18; Pulse Ox 100% on R/A; aj1 19:29 BP 156 / 75; Pulse 63; Resp 18; Pulse Ox 100% on R/A; aj1 MDM: 16:48 Patient medically screened. rn 17:46 Differential diagnosis: cardiac arrhythmia, generalized weakness, hypovolemia, rn idiopathic dizziness, vertigo. Data reviewed: vital signs, nurses notes, lab test result(s), EKG, radiologic studies, CT scan, and as a result, I will discharge patient. Counseling: I had a detailed discussion with the patient and/or guardian regarding: the historical points, exam findings, and any diagnostic results supporting the discharge/admit diagnosis, lab results, radiology results, the need for outpatient follow up, to return to the emergency department if symptoms worsen or persist or if there are any questions or concerns that arise at home. Response to treatment: the patient's symptoms have markedly improved after treatment. 18:57 ED course: Pt much better with fluids, normal vitals, neg bloodwork and ct head. No rn ischemia on ECG.. 06/04 16:24 Order name: Glucose, Ancillary Testing; Complete Time: 16:54 EDMS 06/04 16:59 Order name: Basic Metabolic Panel; Complete Time: 17:44 rn 06/04 16:59 Order name: CT Head Brain wo Cont; Complete Time: 17:45 rn 06/04 16:59 Order name: CBC with Diff; Complete Time: 17:37 rn 06/04 16:59 Order name: Troponin (emerg Dept Use Only); Complete Time: 17:44 rn 06/04 18:18 Order name: Urine Dipstick--Ancillary (enter results) em1 06/04 16:59 Order name: EKG; Complete Time: 17:00 rn 06/04 16:59 Order name: Cardiac monitoring; Complete Time: 17:11 rn 06/04 16:59 Order name: EKG - Nurse/Tech; Complete Time: 17:31 rn 06/04 16:59 Order name: IV Saline Lock; Complete Time: 17:11 rn 05 16:59 Order name: Labs collected and sent; Complete Time: 17:11 rn 06/04 16:59 Order name: NPO; Complete Time: 17:11 rn 06/04 16:59 Order name: O2 Per Protocol; Complete Time: 17:11 rn 06/04 16:59 Order name: O2 Sat Monitoring; Complete Time: 17:11 rn 06/04 16:59 Order name: Urine Dipstick-Ancillary (obtain specimen); Complete Time: 17:48 rn EC:41 Rate is 58 beats/min. Rhythm is regular. QRS [place] is Normal. NE interval is normal. QRS rn interval is normal. QT interval is normal. No Q waves. T waves are Normal. No ST changes noted. Clinical impression: Sinus bradycardia. Interpreted by me. Reviewed by me. Administered Medications: 17:30 Drug: NS 0.9% 500 ml Route: IV; Rate: bolus; Site: left antecubital; aj1 Disposition: 06/04/19 18:58 Discharged to Home. Impression: Dehydration, Dizziness and giddiness. - Condition is Stable. - Discharge Instructions: Dehydration, Adult, Dizziness. - Medication Reconciliation Form, Thank You Letter, Antibiotic Education, Prescription Opioid Use form. - Follow up: Private Physician; When: As needed; Reason: Recheck today's complaints, Re-evaluation by your physician. - Problem is new. - Symptoms have improved. Signatures: Dispatcher [employer] EDMS Haleigh Curtis RN RN aj1 Tushar Austin MD MD rn Leal, Jahala, RN RN jl7 Corrections: (The following items were deleted from the chart) 17:35 17:09 Constitutional: Negative for fever, chills, and weight loss, Eyes: Negative for rn injury, pain, redness, and discharge, Neck: Negative for injury, pain, and swelling, Cardiovascular: Negative for chest pain, palpitations, and edema, Respiratory: Negative for shortness of breath, cough, wheezing, and pleuritic chest pain, Abdomen/GI: Negative for abdominal pain, nausea, vomiting, diarrhea, and constipation, MS/Extremity: Negative for injury and deformity, Skin: Negative for injury, rash, and discoloration, Neuro: Negative for headache, numbness, tingling, and seizure, rn 17:35 17:09 Constitutional: This is a well developed, well nourished patient who is awake, rn alert, and in no acute distress. Head/Face: Normocephalic, atraumatic. Eyes: Pupils equal round and reactive to light, extra-ocular motions intact. Lids and lashes normal. Conjunctiva and sclera are non-icteric and not injected. Cornea within normal limits. Periorbital areas with no swelling, redness, or edema. ENT: dry MM Neck: Trachea midline, no thyromegaly or masses palpated, and no cervical lymphadenopathy. Supple, full range of motion without nuchal rigidity, or vertebral point tenderness. No Meningismus. Cardiovascular: Regular rate and rhythm. No pulse deficits. Respiratory: No increased work of breathing, no retractions or nasal flaring. Abdomen/GI: soft, non-tender MS/ Extremity: Pulses equal, no cyanosis. Neurovascular intact. Full, normal range of motion. Equal circumference. Neuro: Awake and alert, GCS 15, oriented to person, place, time, and situation. Cranial nerves II-XII grossly intact. Motor strength 5/5 in all extremities. Sensory grossly intact. Cerebellar exam normal. rn 19:30 18:58 06/04/2019 18:58 Discharged to Home. Impression: Dehydration; Dizziness and aj1 giddiness. Condition is Stable. Forms are Medication Reconciliation Form, Thank You Letter, Antibiotic Education, Prescription Opioid Use. Follow up: Private Physician; When: As needed; Reason: Recheck today's complaints, Re-evaluation by your physician. Problem is new. Symptoms have improved. rn
[2019-06-04 19:13] LABS: Urine Glucose 2+ (NEG); Urine Specific Gravity 1.025 (1.005-1.030)
[2019-06-04 19:14] LABS: Urine Blood NEGATIVE (NEG); Urine Protein NEGATIVE (NEG)
[2019-06-04 22:00] VITALS: TEMP 98.7; O2SAT 100
[2019-06-04 22:07] VITALS: BP 156/75
--- NOTE | 2019-06-05 07:02 | EKG ---
Test Date: 2019-06-04 Test Time: 17:29:03 Plan Coordinator: CHAPIS MEASUREMENT RESULTS: Intervals: Rate: 58 MS: 164 QRSD: 92 QT: 426 QTc: 418 Muse: P: 75 MS: 164 QRS: -25 T: 71 INTERPRETIVE STATEMENTS: Sinus bradycardia Otherwise normal ECG Compared to ECG 12/11/2017 16:00:37 Sinus rhythm no longer present Left-axis deviation no longer present Electronically Signed On 06-05-19 07:01:30 [employer] by Robin Avendaño
== END 2019-06-04 19:30 | disposition home or self-care (01) ==
LOC: ER 15:57
DX: E86.0 Dehydration (principal); I10 Essential (primary) hypertension; F17.210 Nicotine dependence, cigarettes, uncomplicated; E11.9 Type 2 diabetes mellitus without complications; I25.2 Old myocardial infarction
CPT/HCPCS: 93005; 85025; 80048; 36415; 82947; 81003; 84484; 70450; 99285; J7040

== ENCOUNTER 2020-08-28 12:07 | Emergency (ER) | payer OTHER ==
[2020-08-28] MEDS ORDERED: LIDOCAINE 1% MPF 5 ML VIAL ONE (13:31)
[2020-08-28] MEDS ORDERED: TETANUS & DIPHTHERIA TOX,ADULT 0.5 ML VIAL ONE (13:32)
[2020-08-28] MEDS ORDERED: HYDROCODONE/APAP 5/325 MG TAB ONE (13:32)
--- NOTE | 2020-08-28 14:02 | ER ---
Nurse's Notes [facility] Name: Ulisses Agrawal Age: 74 yrs Sex: Male : 1945 Arrival Date: 08/28/2020 Time: 12:10 Bed 24 Private MD: Diagnosis: Puncture wound with foreign body of right hand-fish hook removed Presentation: 08/28 12:12 Chief complaint: Patient states: fish hook to the right hand today. Coronavirus screen: sv Client denies travel out of the [place] in the last 14 days. At this time, the client does not indicate any symptoms associated with coronavirus-19. Ebola Screen: No symptoms or risks identified at this time. Risk Assessment: Do you want to hurt yourself or someone else? Patient reports no desire to harm self or others. Onset of symptoms was August 28, 2020. 12:12 Method Of Arrival: Ambulatory sv 12:12 Acuity: RAMIREZ 3 sv 12:13 Initial Sepsis Screen: Does the patient meet any 2 criteria? No. Patient's initial sv sepsis screen is negative. Does the patient have a suspected source of infection? No. Patient's initial sepsis screen is negative. Triage Assessment: 12:12 General: Appears in no apparent distress. uncomfortable, Behavior is calm, cooperative, sv appropriate for age. Pain: Complains of pain in right hand. Neuro: Level of Consciousness is awake, alert, obeys commands, Oriented to person, place, time, situation, Gait is steady. Respiratory: Respiratory effort is even, unlabored. Historical: - Allergies: 12:13 No Known Allergies; sv - PMHx: 12:13 Diabetes - NIDDM; Hypertension; Myocardial infarction; sv - Immunization history:: Adult Immunizations up to date. - Social history:: Smoking status: Patient reports the use of cigarette tobacco products, smokes one-half pack cigarettes per day. Screenin:07 Abuse screen: Denies threats or abuse. Nutritional screening: No deficits noted. vg1 Tuberculosis screening: No symptoms or risk factors identified. Fall Risk No fall in past 12 months (0 pts). No secondary diagnosis (0 pts). No IV (0 pts). Ambulatory Aid- None/Bed Rest/Nurse Assist (0 pts). Gait- Normal/Bed Rest/Wheelchair (0 pts) Mental Status- Oriented to own ability (0 pts). Total Justin Fall Scale indicates No Risk (0-24 pts). Assessment: 13:05 General: Appears in no apparent distress. comfortable, Behavior is calm, cooperative. vg1 Pain: Denies pain. Complains of pain in Right first web space. Neuro: Level of Consciousness is awake, alert, obeys commands, Oriented to person, place, time, situation. Cardiovascular: Patient's skin is warm and dry. Respiratory: Airway is patent Respiratory effort is even, unlabored. Derm: Skin is pink, warm \T\ dry. Musculoskeletal: Circulation, motion, and sensation intact. Injury Description: Foreign body is located Right first web space. 14:34 Reassessment: Patient appears in no apparent distress at this time. Patient and/or vg1 family updated on plan of care and expected duration. Pain level reassessed. Patient is alert, oriented x 3, equal unlabored respirations, skin warm/dry/pink. Patient denies pain at this time. Vital Signs: 12:13 BP 126 / 66; Pulse 86; Resp 16; Temp 98.7; Pulse Ox 100% ; Height 5 ft. 7 in. (170.18 sv cm); Pain 5/10; 13:06 BP 151 / 84; Pulse 80; Resp 20; Pulse Ox 98% on R/A; vg1 14:00 BP 149 / 84; Pulse 80; Resp 16; Pulse Ox 100% ; vg1 ED Course: 12:10 Patient arrived in ED. mr 12:12 Triage completed. sv 12:12 Arm band placed on. sv 12:57 Darrian Bain NP is PHCP. pm1 12:57 Arnie Dover MD is Attending Physician. pm1 13:05 Cherry Basilio, CODEY is Primary Nurse. vg1 13:07 Patient has correct armband on for positive identification. Bed in low position. Call vg1 light in reach. 14:01 Connor Vogel MD is Referral Physician. pm1 14:33 No provider procedures requiring assistance completed. Patient did not have IV access vg1 during this emergency room visit. Administered Medications: 13:18 Drug: Tetanus-Diphtheria Toxoid Adult 0.5 ml {Office Messenger: [employer]. Exp: vg1 10/15/2021. Lot #: [id number]. } Route: IM; Site: right deltoid; 14:35 Follow up: Response: No adverse reaction vg1 13:18 Drug: [place] 5 mg-325 mg 1 tabs Route: PO; vg1 14:35 Follow up: Response: No adverse reaction vg1 14:08 Drug: Lidocaine (1 %) 5 ml Volume: 5 ml; Route: Infiltration; vg1 14:36 Follow up: Response: No adverse reaction vg1 Outcome: 14:02 Discharge ordered by MD. pm1 14:34 Discharged to home ambulatory. vg1 14:34 Condition: stable 14:34 Discharge instructions given to patient, Instructed on discharge instructions, follow up and referral plans. medication usage, Demonstrated understanding of instructions, follow-up care, medications, Prescriptions given X 1. 14:35 Patient left the ED. vg1 Signatures: Xi Royal RN RN Kiara Levi Patrick, CAPONIZER CAPONIZER pm1 Cherry Basilio RN RN vg1 Corrections: (The following items were deleted from the chart) 12:15 12:13 Pulse 86bpm; Resp 16bpm; Pulse Ox 100%; Temp 98.7F; Height 5 ft. 7 in.; sv sv
--- NOTE | 2020-08-28 14:02 | EDPHYS ---
Physician Documentation [facility] Name: Ulisses Agrawal Age: 74 yrs Sex: Male : 1945 Arrival Date: 08/28/2020 Time: 12:10 Bed 24 Private MD: ED Physician Arnie Dover HPI: 08/28 14:03 This 74 yrs old Male presents to ER via Ambulatory with complaints of Fish pm1 hook stuck in hand. 16:12 The patient or guardian reports a puncture wound, fishhook. The complaints affect the pm1 Right first web space. Context: The problem was sustained outdoors, resulted from accidental, was fishing. Onset: The symptoms/episode began/occurred just prior to arrival. Modifying factors: The symptoms are alleviated by nothing, the symptoms are aggravated by nothing. Associated signs and symptoms: The patient has no apparent associated signs or symptoms, Pertinent negatives: cyanosis distally, decreased sensation distally, numbness distally, tingling distally. The patient has not experienced similar symptoms in the past. It is unknown whether or not the patient has recently seen a physician. Historical: - Allergies: 12:13 No Known Allergies; sv - PMHx: 12:13 Diabetes - NIDDM; Hypertension; Myocardial infarction; sv - Immunization history:: Adult Immunizations up to date. - Social history:: Smoking status: Patient reports the use of cigarette tobacco products, smokes one-half pack cigarettes per day. ROS: 16:12 Constitutional: Negative for fever, chills, and weight loss, Cardiovascular: Negative pm1 for chest pain, palpitations, and edema, Respiratory: Negative for shortness of breath, cough, wheezing, and pleuritic chest pain. 16:12 Neuro: Negative for headache, weakness, numbness, tingling, and seizure. 16:12 MS/extremity: Positive for puncture, of the Right first web space, Negative for decreased range of motion, deformity. 16:12 Skin: Positive for puncture, of the Right first web space. Exam: 16:12 Constitutional: This is a well developed, well nourished patient who is awake, alert, pm1 and in no acute distress. 16:12 Cardiovascular: Exam negative for acute changes, Rate: normal, Rhythm: regular, Pulses: no pulse deficits are appreciated. 16:12 Respiratory: Exam negative for acute changes, respiratory distress, shortness of breath. 16:12 Skin: Appearance: normal except for affected area, injury, puncture(s), of the Right first web space, fishhook present . 16:12 Neuro: Exam negative for acute changes, Orientation: is normal, Mentation: is normal, Motor: is normal, moves all fours, Sensation: is normal, no obvious gross deficits. Vital Signs: 12:13 BP 126 / 66; Pulse 86; Resp 16; Temp 98.7; Pulse Ox 100% ; Height 5 ft. 7 in. (170.18 sv cm); Pain 5/10; 13:06 BP 151 / 84; Pulse 80; Resp 20; Pulse Ox 98% on R/A; vg1 14:00 BP 149 / 84; Pulse 80; Resp 16; Pulse Ox 100% ; vg1 Procedures: 14:03 Foreign Body Removal: a fishhook, from the right Right first web space, by pushed pm1 through and dhiraj cut off. The patient tolerated the removal well, lidocaine 1% 5 mL local. MDM: 12:57 Patient medically screened. pm1 14:01 Data reviewed: vital signs. Data interpreted: Pulse oximetry: on room air is 98 %. pm1 Interpretation: normal. Counseling: I had a detailed discussion with the patient and/or guardian regarding: the historical points, exam findings, and any diagnostic results supporting the discharge/admit diagnosis, the need for outpatient follow up, a hand specialist, to return to the emergency department if symptoms worsen or persist or if there are any questions or concerns that arise at home. Administered Medications: 13:18 Drug: Tetanus-Diphtheria Toxoid Adult 0.5 ml {Acls Nurse: [employer]. Exp: vg1 10/15/2021. Lot #: [id number]. } Route: IM; Site: right deltoid; 14:35 Follow up: Response: No adverse reaction vg1 13:18 Drug: [place] 5 mg-325 mg 1 tabs Route: PO; vg1 14:35 Follow up: Response: No adverse reaction vg1 14:08 Drug: Lidocaine (1 %) 5 ml Volume: 5 ml; Route: Infiltration; vg1 14:36 Follow up: Response: No adverse reaction vg1 Disposition: 08/29 06:18 Co-signature as Attending Physician, Arnie Dover MD I agree with the assessment and jason plan of care. Disposition: 08/28/20 14:02 Discharged to Home. Impression: Puncture wound with foreign body of right hand - fish hook removed. - Condition is Stable. - Discharge Instructions: Puncture Wound. - Prescriptions for Doxycycline Hyclate 100 mg Oral Tablet - take 1 tablet by ORAL route every 12 hours; 20 tablet. - Medication Reconciliation Form, Thank You Letter, Antibiotic Education, Prescription Opioid Use form. - Follow up: Emergency Department; When: As needed; Reason: Worsening of condition. Follow up: Private Physician; When: 2 - 3 days; Reason: Recheck today's complaints, Continuance of care, Re-evaluation by your physician. Follow up: Connor Vogel MD; When: 2 - 3 days; Reason: Recheck today's complaints, Continuance of care, Re-evaluation by your physician. - Problem is new. - Symptoms have improved. Signatures: Xi Royal, RN RN Arnie Mercado MD MD cha Marinas, Patrick, FELT HAT POUNCING OPERATOR HAND FELT HAT POUNCING OPERATOR HAND pm1 Cherry Basilio RN RN vg1 Corrections: (The following items were deleted from the chart) 08/28 14:35 14:02 08/28/2020 14:02 Discharged to Home. Impression: Puncture wound with foreign body vg1 of right hand - fish hook removed. Condition is Stable. Forms are Medication Reconciliation Form, Thank You Letter, Antibiotic Education, Prescription Opioid Use. Follow up: Emergency Department; When: As needed; Reason: Worsening of condition. Follow up: Private Physician; When: 2 - 3 days; Reason: Recheck today's complaints, Continuance of care, Re-evaluation by your physician. Follow up: Connor Vogel; When: 2 - 3 days; Reason: Recheck today's complaints, Continuance of care, Re-evaluation by your physician. Problem is new. Symptoms have improved. pm1
[2020-08-28 14:41] VITALS: TEMP 98.7
[2020-08-28 14:44] VITALS: BP 149/84; O2SAT 100
== END 2020-08-28 14:35 | disposition home or self-care (01) ==
LOC: ER 12:07
DX: S61.441A Puncture wound with foreign body of right hand, initial encounter (principal); I10 Essential (primary) hypertension; F17.210 Nicotine dependence, cigarettes, uncomplicated; Z23 Encounter for immunization
CPT/HCPCS: 90471; 90714; 99283

== ENCOUNTER 2021-10-09 12:57 | Emergency (ER) | payer OTHER ==
--- NOTE | 2021-10-09 13:43 | RAD REPORT ---
EXAM DESCRIPTION: CT - Head Brain Wo Cont - 10/09/2021 1:37 pm CLINICAL HISTORY: HEADACHE COMPARISON: Head Brain Wo Cont dated 06/04/2019 TECHNIQUE: All CT scans are performed using dose optimization technique as appropriate and may inclu de automated exposure control or mA/KV adjustment according to patient size. FINDINGS: No intracranial hemorrhage, hydrocephalus or extra-axial fluid collection.Mild generalized brain atrophy is present with mild periventricular and deep white matter chronic microvascular ische мария changes.No areas of brain edema or evidence of midline shift. The paranasal sinuses and mastoids are clear. The calvarium is intact. IMPRESSION: No acute intracranial abnormality.
--- NOTE | 2021-10-09 15:57 | ER ---
Nurse's Notes [facility] Name: Ulisses Agrawal Age: 76 yrs Sex: Male : 1945 Arrival Date: 10/09/2021 Time: 13:00 Bed Treatment Private MD: Diagnosis: Headache;Essential (primary) hypertension Presentation: 10/09 13:02 Chief complaint: Patient states: "I have been having a headache since last week and jd3 when it gets bad it makes my eye balls hurt. I have been out of my medication.". Coronavirus screen: At this time, the client does not indicate any symptoms associated with coronavirus-19. Ebola Screen: No symptoms or risks identified at this time. Initial Sepsis Screen: Does the patient meet any 2 criteria? No. Patient's initial sepsis screen is negative. Does the patient have a suspected source of infection? No. Patient's initial sepsis screen is negative. Risk Assessment: Do you want to hurt yourself or someone else? Patient reports no desire to harm self or others. Onset of symptoms was October 02, 2021. 13:02 Method Of Arrival: Ambulatory jd3 13:02 Acuity: RAMIREZ 2 jd3 Triage Assessment: 13:07 Headache History: Denies prior headaches. General: Appears in no apparent distress. jd3 comfortable, Behavior is calm, cooperative, appropriate for age. Pain: Complains of pain in head Pain at worst was 10 out of 10 on a pain scale. Pain began gradually, Also complains of no other associated symptoms. Neuro: Level of Consciousness is awake, alert, obeys commands, Oriented to person, place, time, situation, Reports headache Denies weakness blurred vision dizziness, paresthesias numbness. Cardiovascular: Capillary refill < 3 seconds Patient's skin is warm and dry. Respiratory: Airway is patent Respiratory effort is even, unlabored, Respiratory pattern is regular, symmetrical. Historical: - Allergies: 13:03 No Known Allergies; jd3 - Home Meds: 13:03 Metformin Oral [Active]; "1 pill a day for high blood pressure I think" [Active]; jd3 - PMHx: 13:03 Diabetes - NIDDM; Hypertension; Myocardial infarction; jd3 - Immunization history:: Adult Immunizations up to date, Client reports having NOT received the Covid vaccine. Flu vaccine is not up to date. - Social history:: Smoking status: Patient reports the use of cigarette tobacco products, smokes one-half pack cigarettes per day. Vital Signs: 13:04 BP 194 / 109; Pulse 94; Resp 18 S; Temp 98.2(TE); Pulse Ox 100% on R/A; Weight 79.38 kg jd3 (R); Height 5 ft. 7 in. (170.18 cm) (R); Pain 5/10; 13:04 Body Mass Index 27.41 (79.38 kg, 170.18 cm) jd3 ED Course: 13:00 Patient arrived in ED. mr 13:03 Triage completed. jd3 13:04 Darrian Bain NP is PHCP. pm1 13:04 Tushar Austin MD is Attending Physician. pm1 13:05 Arm band placed on. jd3 13:39 CT Head Brain wo Cont In Process Unspecified. EDMS 15:50 Valentina Mckeon RN is Primary Nurse. ss 16:16 No provider procedures requiring assistance completed. Patient did not have IV access ss during this emergency room visit. Administered Medications: 16:00 Drug: Lisinopril 10 mg Route: PO; ss 16:01 Follow up: Response: No adverse reaction; Medication administered at discharge. ss Outcome: 15:56 Discharge ordered by . pm1 16:16 Discharged to home ambulatory. ss 16:16 Condition: good 16:16 Discharge instructions given to patient, Instructed on discharge instructions, follow up and referral plans. medication usage, Demonstrated understanding of instructions, follow-up care, medications, Prescriptions given X 1. 16:16 Patient left the ED. ss Signatures: Dispatcher [employer] [facility] Gurmeet Kiara mr Valentina Mckeon, CODEY RN ss Darrian Bain, MARIANA CASING BLOWER pm1 Chet Bella RN RN jd3 Corrections: (The following items were deleted from the chart) 13:04 13:03 Home Meds: "2 other pills for high blood pressure, I think."; jd3 jd3 13:06 13:02 Chief complaint: Patient states: "I have been having a headache since last week jd3 and when it gets bad it makes my eye balls hurt." jd3 13:41 13:02 Acuity: RAMIREZ 3 jd3 jd3
--- NOTE | 2021-10-09 15:57 | EDPHYS ---
Physician Documentation [facility] Name: Ulisses Agrawal Age: 76 yrs Sex: Male : 1945 Arrival Date: 10/09/2021 Time: 13:00 Bed Treatment Private MD: ED Physician Tushar Austin HPI: 10/09 13:09 This 76 yrs old Male presents to ER via Ambulatory with complaints of Headache.pm1 13:09 The patient complains of pain to the forehead and behind his eyes. The patient pm1 describes the headache as aching. Onset: The symptoms/episode began/occurred 7 day(s) ago. Associated signs and symptoms: Pertinent negatives: dizziness, fever, nausea, vision changes, vomiting, weakness, vertigo. Severity of symptoms: in the emergency department the pain is unchanged. the symptoms are aggravated by Patient has not taken his blood pressure medications for 6 months. Patient has not seen his PCP, Allison Butts, since then. The patient has not recently seen a physician, the patient's primary care provider is Dr. Butts. Historical: - Allergies: 13:03 No Known Allergies; jd3 - Home Meds: 13:03 Metformin Oral [Active]; "1 pill a day for high blood pressure I think" [Active]; jd3 - PMHx: 13:03 Diabetes - NIDDM; Hypertension; Myocardial infarction; jd3 - Immunization history:: Adult Immunizations up to date, Client reports having NOT received the Covid vaccine. Flu vaccine is not up to date. - Social history:: Smoking status: Patient reports the use of cigarette tobacco products, smokes one-half pack cigarettes per day. ROS: 13:09 Constitutional: Negative for fever, chills, and weight loss, Cardiovascular: Negative pm1 for chest pain, palpitations, and edema, Respiratory: Negative for shortness of breath, cough, wheezing, and pleuritic chest pain, Abdomen/GI: Negative for abdominal pain, nausea, vomiting, diarrhea, and constipation, Back: Negative for injury and pain, MS/Extremity: Negative for injury and deformity, Skin: Negative for injury, rash, and discoloration. 13:09 Neuro: Positive for headache, Negative for numbness, tingling. 13:09 All other systems are negative. Exam: 13:09 Constitutional: This is a well developed, well nourished patient who is awake, alert, pm1 and in no acute distress. Head/Face: Normocephalic, atraumatic. 13:09 Skin: Warm, dry with normal turgor. Normal color with no rashes, no lesions, and no evidence of cellulitis. MS/ Extremity: Pulses equal, no cyanosis. Neurovascular intact. Full, normal range of motion. 13:09 Eyes: Exam is negative for acute changes, Periorbital structures: appear normal, Extraocular movements: intact throughout, Conjunctiva: no acute changes, no injection. 13:09 ENT: Exam is negative for acute changes, Mouth: no acute changes, Lips: normal, moist, Oral mucosa: normal, pink and intact, moist. 13:09 Cardiovascular: Exam negative for acute changes, Rate: normal, Rhythm: regular, Pulses: no pulse deficits are appreciated. 13:09 Respiratory: Exam negative for acute changes, respiratory distress, shortness of breath. 13:09 Neuro: Exam negative for acute changes, Orientation: is normal, Mentation: is normal, Motor: is normal, moves all fours. Vital Signs: 13:04 BP 194 / 109; Pulse 94; Resp 18 S; Temp 98.2(TE); Pulse Ox 100% on R/A; Weight 79.38 kg jd3 (R); Height 5 ft. 7 in. (170.18 cm) (R); Pain 5/10; 13:04 Body Mass Index 27.41 (79.38 kg, 170.18 cm) jd3 MDM: 13:31 Patient medically screened. pm1 15:21 Data reviewed: vital signs. Data interpreted: Pulse oximetry: on room air is 100 %. pm1 Interpretation: normal. ED course: Patient cannot recall her medications that he used to take for blood pressure management. Would like to restart them if possible. 15:27 ED course: Patient was able to contact his pharmacy to find out his blood pressure pm1 medication he was previously taking. Will restart the medication. 15:55 Counseling: I had a detailed discussion with the patient and/or guardian regarding: the pm1 historical points, exam findings, and any diagnostic results supporting the discharge/admit diagnosis, radiology results, the need for outpatient follow up, a family practitioner, to return to the emergency department if symptoms worsen or persist or if there are any questions or concerns that arise at home. 10/09 13:09 Order name: CT Head Brain wo Cont; Complete Time: 13:50 pm1 Administered Medications: 16:00 Drug: Lisinopril 10 mg Route: PO; 16:01 Follow up: Response: No adverse reaction; Medication administered at discharge. Disposition: 19:15 Co-signature as Attending Physician, Tushar Austin MD. rn Disposition Summary: 10/09/21 15:56 Discharge Ordered Location: Home pm1 Problem: new pm1 Symptoms: have improved pm1 Condition: Stable pm1 Diagnosis - Headache pm1 - Essential (primary) hypertension pm1 Followup: pm1 - With: Emergency Department - When: As needed - Reason: Worsening of condition Followup: pm1 - With: Private Physician - When: 2 - 3 days - Reason: Recheck today's complaints, Continuance of care, Re-evaluation by your physician Discharge Instructions: - Discharge Summary Sheet pm1 - General Headache Without Cause pm1 - Hypertension, Adult pm1 - How to Take Your Blood Pressure, [id number] pm1 - DASH Eating Plan pm1 - Managing Your Hypertension pm1 Forms: - Medication Reconciliation Form pm1 - Thank You Letter pm1 - Antibiotic Education pm1 - Prescription Opioid Use pm1 Prescriptions: - Lisinopril 10 mg Oral Tablet - take 1 tablet by ORAL route once daily; 20 tablet; Refills: 0, Product pm1 Selection Permitted Signatures: Dispatcher [employer] EDTushar Ford MD MD rn Smirch, Shelby, RN RN ss Marinas, Patrick, MARIANA DOUBLE END TRIMMER pm1 Chet Bella RN RN jd3 Corrections: (The following items were deleted from the chart) 13:04 13:03 Home Meds: "2 other pills for high blood pressure, I think."; jd3 jd3
[2021-10-09] MEDS ORDERED: lisinopriL 10 MG TAB ONE (16:03)
[2021-10-09 18:08] VITALS: BP 194/109; TEMP 98.2; O2SAT 100
== END 2021-10-09 16:16 | disposition home or self-care (01) ==
LOC: ER 12:57
DX: I10 Essential (primary) hypertension (principal); E11.9 Type 2 diabetes mellitus without complications; I25.2 Old myocardial infarction; F17.210 Nicotine dependence, cigarettes, uncomplicated
CPT/HCPCS: 70450; 99283

== ENCOUNTER 2023-01-28 09:57 | Emergency (ER) | payer OTHER ==
[2023-01-28 10:50] LABS: Hematocrit 35.6 % (39.6-49.0); Lymphocytes % 27.3 % (15.3-44.8); MCV 87.1 fL (80-100); MPV 7.6 fL (7.6-11.3); RBC Red Blood Cell Count 4.09 M/uL (4.33-5.43)
[2023-01-28 11:13] LABS: Albumin 3.5 g/dL (3.4-5.0); Bilirubin Total 0.4 mg/dL (0.2-1.0); Magnesium 2.4 mg/dL (1.6-2.4); Protein, Total 7.3 g/dL (6.4-8.2); Troponin High Sensitivity 12.7 pg/mL (<58.9)
--- NOTE | 2023-01-28 11:33 | RAD REPORT ---
EXAM DESCRIPTION: CT - Head Brain Wo Cont - 01/28/2023 11:21 am CLINICAL HISTORY: Blurred vision COMPARISON: 2021 TECHNIQUE: Computed axial tomography of the head was obtained. IV contrast was not requested. All CT scans are performed using dose optimization technique as appropriate and may include automated exposure control or mA/KV adjustment according to patient size. FINDINGS: An intracranial bleed is not seen The ventricles are normal in caliber No extra-axial fluid collection is noted. No significant hypodensity within the brain noted. Mild cerebral atrophy Fluid within the sinuses/ mastoids is not seen. IMPRESSION: No acute intracranial abnormality is seen If patient's symptoms persist MRI of the brain would be recommended
--- NOTE | 2023-01-28 11:45 | RAD REPORT ---
EXAM DESCRIPTION: Ruby Angio01/28/2023 11:21 am CLINICAL HISTORY: Blurred vision COMPARISON: None TECHNIQUE: 100 cc Isovue 370 was administered intravenously. 3D MIP reconstruction performed All CT scans are performed using dose optimization technique as appropriate and may include automated exposure control or mA/KV adjustment according to patient size. FINDINGS: Moderate plaque proximal left common carotid artery. Mild calcified plaque left carotid bulb. Mild calcified plaque right carotid bulb, proximal right internal carotid and right external carotid arteries. The left vertebral artery is dominant. No significant abnormality vertebral arteries. No dissection seen IMPRESSION: Moderate plaque proximal left common carotid artery NASCET criteria used. Mild 0-49% stenosis Moderate 50-69% stenosis Severe 70-99% stenosis
--- NOTE | 2023-01-28 11:45 | RAD REPORT ---
EXAM DESCRIPTION: CTHead angio01/28/2023 11:21 am CLINICAL HISTORY: Blurred vision COMPARISON: None TECHNIQUE: 100 cc Isovue [address] angiogram of the head was obtained. 3D MIPS reconstruction performed. All CT scans are performed using dose optimization technique as appropriate and may include automated exposure control or mA/KV adjustment according to patient size. FINDINGS: Moderate calcified plaque distal left internal carotid artery. Mild calcified plaque dista l right internal carotid artery. A1 segment right anterior cerebral artery is hypoplastic. Anterior cerebral, middle cerebral, basilar and posterior cerebral arteries unremarkable. No large vessel occlusion. No aneurysm IMPRESSION: Moderate calcified plaque distal left internal carotid artery
--- NOTE | 2023-01-28 12:16 | RAD REPORT ---
EXAM DESCRIPTION: Krunal Single View01/28/2023 11:54 am CLINICAL HISTORY: Chest pain COMPARISON: 2018 FINDINGS: Multiple, bilateral pulmonary nodules which are calcified unchanged. Heart is normal size
--- NOTE | 2023-01-28 13:05 | ER ---
Nurse's Notes [facility] Name: Ulisses Agrawal Age: 77 yrs Sex: Male : 1945 Arrival Date: 01/28/2023 Time: 09:57 Bed 20 Private MD: Diagnosis: Near syncope;Blurred vision Presentation: 01/28 10:07 Chief complaint: Patient states: If I'm standing up and I look up I get dizzy and feels iw like my vision is blurry. Coronavirus screen: At this time, the client does not indicate any symptoms associated with coronavirus-19. Ebola Screen: Patient negative for fever greater than or equal to 101.5 degrees Fahrenheit, and additional compatible Ebola Virus Disease symptoms Patient denies exposure to infectious person. Patient denies travel to an Ebola-affected area in the 21 days before illness onset. No symptoms or risks identified at this time. Initial Sepsis Screen: Does the patient meet any 2 criteria? No. Patient's initial sepsis screen is negative. Does the patient have a suspected source of infection? No. Patient's initial sepsis screen is negative. Risk Assessment: Do you want to hurt yourself or someone else? Patient reports no desire to harm self or others. Onset of symptoms. 10:07 Method Of Arrival: Ambulatory iw 10:07 Acuity: RAMIREZ 3 iw Historical: - Allergies: 10:07 No Known Allergies; iw - Home Meds: 11:30 "1 pill a day for high blood pressure I think" [Active]; "2 other pills for high blood eh3 pressure, I think." [Active]; Metformin Oral [Active]; - PMHx: 10:06 Diabetes - NIDDM; Hypertension; Myocardial infarction; iw - Immunization history:: Adult Immunizations up to date. - Social history:: Smoking status: unknown. - Family history:: not pertinent. Screenin:10 [facility] ED Fall Risk Assessment (Adult) Score/Fall Risk Level 0 - 2 = Low Risk. Abuse eh3 screen: Denies threats or abuse. Denies injuries from another. Nutritional screening: No deficits noted. Tuberculosis screening: No symptoms or risk factors identified. Assessment: 10:10 General: Appears in no apparent distress. comfortable, Behavior is calm, cooperative, eh3 appropriate for age. Pain: Denies pain. Neuro: Level of Consciousness is awake, alert, obeys commands, Oriented to person, place, time, situation, Reports blurred vision dizziness, since 2 weeks ago. Cardiovascular: Capillary refill < 3 seconds Patient's skin is warm and dry. Cardiovascular: Rhythm is sinus rhythm. Respiratory: Airway is patent Respiratory effort is even, unlabored, Respiratory pattern is regular, symmetrical. GI: Abdomen is round non-distended. Derm: Skin is pink, warm \\T\\ dry. Musculoskeletal: Circulation, motion, and sensation intact. 10:10 Reassessment: Pt reports that his diabetes medication was changed recently. Reports eh3 that he hasn't been eating or drinking as much as usual. Last food was last night about 8pm. This morning he had a cup of coffee with 2 tablespoons of sugar and about half a can of soda. BGL 178. 11:00 Reassessment: Patient appears in no apparent distress at this time. Patient and/or eh3 family updated on plan of care and expected duration. Pain level reassessed. Patient is alert, oriented x 3, equal unlabored respirations, skin warm/dry/pink. 12:00 Reassessment: Patient appears in no apparent distress at this time. Patient and/or eh3 family updated on plan of care and expected duration. Pain level reassessed. Patient is alert, oriented x 3, equal unlabored respirations, skin warm/dry/pink. 13:00 Reassessment: Patient appears in no apparent distress at this time. Patient and/or eh3 family updated on plan of care and expected duration. Pain level reassessed. Patient is alert, oriented x 3, equal unlabored respirations, skin warm/dry/pink. Vital Signs: 10:08 BP 144 / 92; Pulse 80; Resp 16; Temp 98.1; Pulse Ox 100% on R/A; iw 11:00 BP 131 / 79; Pulse 69; Resp 18; Pulse Ox 100% on R/A; eh3 12:00 BP 171 / 83; Pulse 64; Resp 14; Pulse Ox 100% on R/A; eh3 13:00 BP 181 / 78; Pulse 56; Resp 17; Pulse Ox 100% on R/A; eh3 ED Course: 10:00 Patient arrived in ED. im 10:00 Terry Mcfadden MD is Attending Physician. rt 10:08 Triage completed. iw 10:08 Arm band placed on. iw 10:10 Patient has correct armband on for positive identification. Bed in low position. Call eh3 light in reach. Side rails up X2. Client placed on continuous cardiac and pulse oximetry monitoring. NIBP monitoring applied. Door closed. Noise minimized. Warm blanket given. 10:25 Loren Matos, RN is Primary Nurse. eh3 10:44 Inserted saline lock: 20 gauge in right antecubital area, using aseptic technique. ko1 Blood collected. 10:46 Magnesium Sent. ko1 10:46 Troponin High Sensitivity Sent. ko1 10:46 CMP Sent. ko1 10:46 CBC with Diff Sent. ko1 11:23 CT Head Angio In Process Unspecified. EDMS 11:23 CT Head Brain wo Cont In Process Unspecified. EDMS 11:23 CT Neck Angio In Process Unspecified. EDMS 11:56 Chest Single View XRAY In Process Unspecified. EDMS 13:04 Sergey Melo MD is Referral Physician. rt 13:13 No provider procedures requiring assistance completed. IV discontinued, intact, eh3 bleeding controlled, No redness/swelling at site. Pressure dressing applied. 13:14 Provided Education on: N/A. eh3 Administered Medications: No medications were administered Medication: 13:13 VIS not applicable for this client. eh3 Outcome: 13:04 Discharge ordered by . rt 13:14 Discharged to home ambulatory. eh3 13:14 Condition: stable 13:14 Discharge instructions given to patient, Instructed on discharge instructions, follow up and referral plans. Demonstrated understanding of instructions, follow-up care. 13:21 Patient left the ED. eh3 Signatures: Dispatcher [employer] EDMS Sarah Rangel, Loren Leslie RN, RN RN eh3 Faiza Lock, CODEY RN ko1 Terry Mcfadden MD MD rt Bertha Shay im
--- NOTE | 2023-01-28 13:05 | EDPHYS ---
Physician Documentation [facility] Name: Ulisses Agrawal Age: 77 yrs Sex: Male : 1945 Arrival Date: 01/28/2023 Time: 09:57 Bed 20 Private MD: ED Physician Terry Mcfadden HPI: 01/28 10:51 This 77 yrs old Male presents to ER via Ambulatory with complaints of rt Dizziness, Blurred Vision. 10:51 Patient presents to the ED with reported dizziness and blurred vision when he looks rt upwards, moving his head. He states that this only occurs when he is working outside. The patient states that the symptoms started about 1 week ago has had several episodes. He denies any of the symptoms currently. States that he gets sensations or spider webs going over his vision. Denies any eye pain, chest pain. Denies nausea, vomiting. Denies other acute complaints, symptoms are moderate severity, no other aggravating or alleviating factors.. Historical: - Allergies: 10:07 No Known Allergies; iw - Home Meds: 11:30 "1 pill a day for high blood pressure I think" [Active]; "2 other pills for high blood eh3 pressure, I think." [Active]; Metformin Oral [Active]; - PMHx: 10:06 Diabetes - NIDDM; Hypertension; Myocardial infarction; iw - Immunization history:: Adult Immunizations up to date. - Social history:: Smoking status: unknown. - Family history:: not pertinent. ROS: 10:51 Constitutional: Negative for fever, chills, and weight loss, Cardiovascular: Negative rt for chest pain, palpitations, and edema, Respiratory: Negative for shortness of breath, cough, wheezing, and pleuritic chest pain, Abdomen/GI: Negative for abdominal pain, nausea, vomiting, diarrhea, and constipation, Skin: Negative for injury, rash, and discoloration, Psych: Negative for depression, anxiety, suicide ideation, homicidal ideation, and hallucinations. 10:51 Eyes: Positive for blurry vision, Negative for pain. 10:51 ENT: Positive for 10:51 Neuro: Positive for near syncope, Negative for syncope. Exam: 10:51 Constitutional: This is a well developed, well nourished patient who is awake, alert, rt and in no acute distress. Head/Face: Normocephalic, atraumatic. Chest/axilla: Normal chest wall appearance and motion. Nontender with no deformity. No lesions are appreciated. Cardiovascular: Regular rate and rhythm with a normal S1 and S2. No gallops, murmurs, or rubs. Normal PMI, no JVD. No pulse deficits. Respiratory: Lungs have equal breath sounds bilaterally, clear to auscultation and percussion. No rales, rhonchi or wheezes noted. No increased work of breathing, no retractions or nasal flaring. Abdomen/GI: Soft, non-tender, with normal bowel sounds. No distension or tympany. No guarding or rebound. No evidence of tenderness throughout. Skin: Warm, dry with normal turgor. Normal color with no rashes, no lesions, and no evidence of cellulitis. MS/ Extremity: Pulses equal, no cyanosis. Neurovascular intact. Full, normal range of motion. Psych: Awake, alert, with orientation to person, place and time. Behavior, mood, and affect are within normal limits. 10:51 Eyes: Pupils equally round and reactive to light, conjunctiva normal, extraocular muscles are intact, no nystagmus, head impulse and test of skew negative. 10:51 ECG was reviewed by the Attending Physician. 10:51 Neuro: Speech normal, cranial nerves II through XII intact, strength and sensation intact in upper and lower extremities. Vital Signs: 10:08 BP 144 / 92; Pulse 80; Resp 16; Temp 98.1; Pulse Ox 100% on R/A; iw 11:00 BP 131 / 79; Pulse 69; Resp 18; Pulse Ox 100% on R/A; eh3 12:00 BP 171 / 83; Pulse 64; Resp 14; Pulse Ox 100% on R/A; eh3 13:00 BP 181 / 78; Pulse 56; Resp 17; Pulse Ox 100% on R/A; eh3 MDM: 10:04 Patient medically screened. rt 13:12 Differential diagnosis: Near syncope, vertigo, CVA. Data reviewed: vital signs, nurses rt notes. Consideration of Admission/Observation Escalation of care including admission/observation considered. Patient with mild plaque noted to the left carotid artery. Discussed with neurology, states that patient is stable for outpatient care with initiation of aspirin. Consideration was given to ocular pathology such as retinal detachment, angle-closure glaucoma, however, his presentation is not consistent with these diagnoses and is not quite further work-up for them.. Management of patient was discussed with the following: Director Of Regulatory Affairs: Discussed with neurology. Independent interpretation of the following test(s) in the Emergency Department CT Scan: My interpretation is No hemorrhage seen on interpretation of CT scan images. Counseling: I had a detailed discussion with the patient and/or guardian regarding: the historical points, exam findings, and any diagnostic results supporting the discharge/admit diagnosis, lab results, radiology results, the need for outpatient follow up, to return to the emergency department if symptoms worsen or persist or if there are any questions or concerns that arise at home. 01/28 10:33 Order name: Glucose, Ancillary Testing; Complete Time: 11:19 EDMS 01/28 10:35 Order name: CBC with Diff; Complete Time: 11:19 rt 01/28 10:35 Order name: CMP; Complete Time: 11:19 rt 01/28 10:35 Order name: Troponin High Sensitivity; Complete Time: 11:19 rt 01/28 10:35 Order name: Magnesium; Complete Time: 11:19 rt 01/28 11:50 Order name: CREATININE WHOLE BLOOD; Complete Time: 11:51 EDMS 01/28 10:35 Order name: CT Head Angio; Complete Time: 11:51 rt 01/28 10:35 Order name: CT Head Brain wo Cont; Complete Time: 11:40 rt 01/28 10:35 Order name: CT Neck Angio; Complete Time: 11:51 rt 01/28 10:35 Order name: Chest Single View XRAY; Complete Time: 12:48 rt 01/28 10:35 Order name: EKG; Complete Time: 10:35 rt 01/28 10:35 Order name: EKG - Nurse/Tech; Complete Time: 10:46 rt EC:51 Rate is 74 beats/min. Rhythm is regular, Normal Sinus Rhythm with Right bundle branch rt block. QRS Widener is Normal. NV interval is normal. QRS interval is normal. QT interval is normal. No Q waves. Administered Medications: No medications were administered Disposition Summary: 01/28/23 13:04 Discharge Ordered Location: Home rt Problem: new rt Symptoms: are resolved rt Condition: Stable rt Diagnosis - Near syncope rt - Blurred vision rt Followup: rt - With: Sergey Melo MD - When: 2 - 3 days - Reason: Discharge Instructions: - Discharge Summary Sheet rt - Blurred Vision, Adult rt - Near-Syncope rt Forms: - Medication Reconciliation Form rt - Thank You Letter rt - Antibiotic Education rt - Prescription Opioid Use rt - Patient Portal Instructions rt Signatures: Dispatcher [employer] Sarah Pacheco, CODEY ALEGRE iw Loren Matos RN RN eh3 Terry Mcfadden MD MD rt
[2023-01-28 14:00] VITALS: TEMP 98.1; O2SAT 100
[2023-01-28 14:12] VITALS: BP 181/78
--- NOTE | 2023-01-28 18:49 | EKG ---
Test Date: 2023-01-28 Test Time: 10:47:04 Mold Stripper: TRAMAINE MEASUREMENT RESULTS: Intervals: Rate: 74 [place]: 162 QRSD: 94 QT: 408 QTc: 452 [place]: P: 86 [place]: 162 QRS: -12 T: 92 INTERPRETIVE STATEMENTS: Normal sinus rhythm Incomplete right bundle branch block Nonspecific T wave abnormality Abnormal ECG Compared to ECG 06/04/2019 17:29:03 Incomplete right bundle-branch block now present T-wave abnormality now present Sinus bradycardia no longer present Electronically Signed On 01-28-23 18:47:47 CDT by Gordo Roblero
== END 2023-01-28 13:21 | disposition home or self-care (01) ==
LOC: ER 09:57
DX: R55 Syncope and collapse (principal); H53.8 Other visual disturbances; I10 Essential (primary) hypertension; E11.9 Type 2 diabetes mellitus without complications
CPT/HCPCS: 93005; 85025; 36415; 83735; 82565; 82947; 84484; 80053; 70450; 70496; 70498; 71045; 99284; Q9967